=== PATIENT | female | born 2000 | race Caucasian/White ===

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

== ENCOUNTER 2018-03-11 23:37 | Emergency (ER) | payer OTHER ==
[2018-03-12] MEDS ORDERED: Ibuprofen 800 MG TAB ONE (00:09)
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
== END 2018-03-12 00:23 | disposition home or self-care (01) ==
LOC: SCSER 23:37
DX: S60.221A Contusion of right hand, initial encounter (principal); F31.9 Bipolar disorder, unspecified; Z79.899 Other long term (current) drug therapy; W51.XXXA Accidental striking against or bumped into by another person, initial encounter

== ENCOUNTER 2018-10-15 11:27 | Observation (INO) | payer OTHER ==
[2018-10-15] MEDS ORDERED: Ondansetron PF 4 MG/2 ML Vial ONE (12:04)
[2018-10-15 12:06] LABS: #Monocytes 1.1 thou/uL (0.11-0.59); #Neutrophils 6.9 thou/uL (1.40-6.50); %Basophils 0.5 % (0.0-1.0); %Neutrophils 76.5 % (31.0-61.0); Hemoglobin 16.4 g/dL (12.0-16.0); Mean Corpuscular HGB CONC 32.1 g/dL (32.0-36.0); Mean Corpuscular Hemoglobin 27.3 pg (25.0-35.0); Mean Corpuscular Volume 84.9 fL (78.0-98.0); Mean Platelet Volume 7.2 fL (7.4-10.4); Platelet Count 327 thou/uL (130-400); RBC Distribution Width 13.3 % (11.5-14.5); Red Blood Cell (RBC) Count 6.02 mill/uL (4.00-5.20); White Blood Cell (WBC) Count 9.1 thou/uL (4.8-10.8)
[2018-10-15 12:23] LABS: BHCG - Serum Negative (NEGATIVE); Pregs Control Background? CLEAR/WHITE (CLR/WHITE); Pregs Control Bar Appear? YES (CONTROL BAR)
[2018-10-15 12:32] LABS: ALT (SGPT) 23 U/L (8-55); AST (SGOT) 18 U/L (5-34); Albumin 5.7 g/dL (3.5-5.0); Alkaline Phosphatase 114 U/L (40-150); Anion Gap 19 mmol/L (10-20); BUN (Urea Nitrogen) 34 mg/dL (7.0-18.7); Bilirubin, Total 0.3 mg/dL (0.2-1.2); Calc. Creatinine Clearance 0 mL/min (70-130); Calcium 10.9 mg/dL (7.8-10.44); Carbon Dioxide 12 mmol/L (22-29); Chloride 115 mmol/L (98-107); Estimated GFR-MDRD 39; Globulin 4.5 g/dL (2.4-3.5); Glucose 119 mg/dL (70-105); Lipase 4 U/L (8-78); Potassium 3.5 mmol/L (3.5-5.1); Protein, Total 10.2 g/dL (6.0-8.3); Sodium 142 mmol/L (136-145)
[2018-10-15 15:31] VITALS: BMI 21.4
[2018-10-15] MEDS ORDERED: Ondansetron ODT 4 MG TAB SL PRN (15:51)
[2018-10-15] MEDS ORDERED: Ondansetron PF 4 MG/2 ML Vial IVP PRN (15:51)
[2018-10-15] MEDS: Lactated Ringer's 1,000 ML IV SCH ×2 (16:00→22:00)
[2018-10-15] MEDS ORDERED: Acetaminophen 650 MG Suppository PR PRN (18:08)
[2018-10-15] MEDS ORDERED: Acetaminophen 325 MG TAB PO PRN (18:08)
[2018-10-15 18:25] LABS: Band 4 % (5-11); Hemoglobin 13.1 g/dL (12.0-16.0); Lymphocytes 34 % (28-48); MDiff Complete? YES; Mean Corpuscular HGB CONC 33.9 g/dL (32.0-36.0); Mean Corpuscular Hemoglobin 28.5 pg (25.0-35.0); Mean Platelet Volume 7.8 fL (7.4-10.4); Monocytes 5 % (0-4); Neutrophil 57 % (31-61); Platelet Count 256 thou/uL (130-400); Platelet Morphology Comment Appears Adequate; Red Blood Cell (RBC) Count 4.62 mill/uL (4.00-5.20); White Blood Cell (WBC) Count 6.4 thou/uL (4.8-10.8)
[2018-10-15 18:33] LABS: Anion Gap 12 mmol/L (10-20); BUN (Urea Nitrogen) 27 mg/dL (7.0-18.7); CK (CPK) 54 U/L (29-168); Calc. Creatinine Clearance 93 mL/min (70-130); Carbon Dioxide 16 mmol/L (22-29); Chloride 116 mmol/L (98-107); Estimated GFR-MDRD 86; Glucose 90 mg/dL (70-105); Magnesium 2.1 mg/dL (1.7-2.2); Potassium 3.1 mmol/L (3.5-5.1); Sodium 141 mmol/L (136-145)
--- NOTE | 2018-10-15 19:04 | HP ---
REASON FOR ADMISSION: Persistent nausea, vomiting, and diarrhea since yesterday with subsequent dehydration. HISTORY OF PRESENT ILLNESS: Ms. Lee is a 18-year-old woman, who presents with persistent vomiting since yesterday evening around 8 or 9 p.m. She states it began shortly after drinking big red. She reports vomiting anywhere between 20 and 30 times since yesterday. She reports having persistent diarrhea on an hourly basis and states at one point the stools appeared red-tinged, but denies noting any blood per rectum when wiping. She denies experiencing any associated abdominal pain or fevers. She has not had any recent travels. She has not had issues with her bowels in the past or episodes like this before. Sick, she states she has not been around anyone who has had any GI illness or similar symptoms. She has not been on any recent medications. The patient transferred from [facility] ER, where she was given IV fluids and ondansetron with improved symptoms. REVIEW OF SYSTEMS: As stated previously, she denies any fevers, chills, or sweats. She has not had any headaches or dizziness. No chest pain, palpitations, or shortness of breath. Again, denies any abdominal pain or cramping. She has not had any urinary complaints such as dysuria or hematuria. All other review of systems apart from those mentioned in the HPI are negative. PAST MEDICAL HISTORY: Bipolar disorder. PAST SURGICAL HISTORY: Previous tonsillectomy and adenoidectomy. SOCIAL HISTORY: The patient denies any tobacco use, alcohol use, or illicit drug use. FAMILY HISTORY: No family history of any bowel disease. She has a maternal history of bipolar illness. ALLERGIES: PENICILLIN. CURRENT MEDICATIONS: None. PHYSICAL EXAMINATION: GENERAL: The patient appears well developed, well nourished, and is in no acute distress. She does have a flat affect. VITAL SIGNS: Temperature 97.5, pulse 103, respirations 20, O2 saturation 100% on room air, and blood pressure 134/73. HEENT: Normocephalic and atraumatic. Pupils are equal, round, and reactive to light sclerae icterus. Oropharynx is clear. NECK: Supple without lymphadenopathy. LUNGS: Clear to auscultation bilaterally without wheezes, rales, or rhonchi. CARDIAC: Regular rate and rhythm without audible murmurs, rubs, or gallops. ABDOMEN: Soft, nontender, and nondistended. Normoactive bowel sounds present. No guarding or rigidity. No renal angle tenderness. EXTREMITIES: No calf pain or swelling. No edema. NEUROLOGIC: Alert and oriented x3. SKIN: Without rash or jaundice. LABORATORY DATA: White blood count 9.1, hemoglobin 16.4, hematocrit 51.1, MCV 84.9, and platelet count 327. Sodium 142, potassium 3.5, chloride 115, carbon dioxide 12, anion gap 19, BUN 34, creatinine 1.69, GFR 39, and glucose 119. Lactic acid 1.1 , calcium 10.9, total bilirubin 0.3, AST 18, ALT 23, alkaline phosphatase 114, total protein 10.2, albumin 5.7, globulin 4.5, and lipase 4. Serum test negative. IMPRESSION AND PLAN: Ms. Lee is being admitted for management of the followin. Viral gastroenteritis. Nausea and vomiting have settled. She has been receiving intravenous fluids and we will continue to hydrate. Her hemoglobin and hematocrit were elevated and possibly due to dehydration. We will recheck now that she has received intravenous fluids. We will initiate a clear liquid diet and advance as tolerated. 2. Dehydration. BUN elevated at 34 and creatinine at 1.69 on initial presentation. We will recheck renal function. Also, we will check her CK level. We will continue intravenous hydration. 3. Deep vein thrombosis prophylaxis. Mechanical sequential compression devices. Hold prophylactic anticoagulation given questionable report of blood-tinged stool. 4. Gastrointestinal prophylaxis. 5. Full code status. Surrogate decision maker is her mother, Joanna Lee. The patient's case was discussed with Dr. Kurtz, who agrees upon care as described above. Job ID: [id number] [facility]
[2018-10-15] MEDS ORDERED: Potassium Chloride 20 MEQ TAB PO SCH ×2 (19:30→21:30)
[2018-10-15] MEDS: Famotidine/PF 20 mg/2ml Vial SLOW IVP SCH (19:59)
[2018-10-16] MEDS ORDERED: Sodium Chloride 0.9% 1,000 ML IV SCH (01:00)
[2018-10-16 06:50] LABS: Bilirubin Negative (Negative); Blood, Urine Negative (Negative); Clarity CLOUDY (Clear); Glucose, Urine (Dipstick) Negative (Negative); Leukocyte Negative (Negative); Nitrite Negative (Negative); Protein, Urine (Dipstick) Trace mg/dL (Neg-Trace); Specific Gravity, Urine 1.026 (1.002-1.036); Urobilinogen 0.2 mg/dL (0.2-1.0)
[2018-10-16 07:05] LABS: Amphetamine Not Detected (NotDetected); Barbiturates Screen Not Detected (NotDetected); Benzodiazepine Screen Not Detected (NotDetected); Cocaine Metabolite Screen Not Detected (NotDetected); Medtox Control Line Valid? VALID (VALID); Medtox Reader # READER 1; Methadone Not Detected (NotDetected); Methamphetamine Not Detected (NotDetected); Opiate Screen Not Detected (NotDetected); Oxycodone Screen Not Detected (NotDetected); Phencyclidine (PCP) Not Detected (NotDetected); THC/Cannabinoid Screen Not Detected (NotDetected); Tricyclic Screen Not Detected (NotDetected)
[2018-10-16 08:12] LABS: Hemoglobin 11.3 g/dL (12.0-16.0); Mean Corpuscular HGB CONC 33.8 g/dL (32.0-36.0); Mean Corpuscular Hemoglobin 29.1 pg (25.0-35.0); Mean Platelet Volume 7.7 fL (7.4-10.4); Platelet Count 222 thou/uL (130-400); RBC Distribution Width 13.2 % (11.5-14.5); Red Blood Cell (RBC) Count 3.88 mill/uL (4.00-5.20); White Blood Cell (WBC) Count 5.5 thou/uL (4.8-10.8)
[2018-10-16 08:26] LABS: Anion Gap 9 mmol/L (10-20); BUN (Urea Nitrogen) 17 mg/dL (7.0-18.7); Calc. Creatinine Clearance 108 mL/min (70-130); Calcium 8.6 mg/dL (7.8-10.44); Carbon Dioxide 18 mmol/L (22-29); Chloride 116 mmol/L (98-107); Estimated GFR-MDRD Greater than 90; Glucose 86 mg/dL (70-105); Potassium 3.4 mmol/L (3.5-5.1); Sodium 140 mmol/L (136-145)
[2018-10-16] MEDS: Famotidine/PF 20 mg/2ml Vial SLOW IVP SCH (08:43)
[2018-10-16] MEDS ORDERED: Potassium Chloride 20 MEQ TAB PO SCH (09:30)
[2018-10-16 09:50] LABS: Band 2 % (5-11); Lymphocytes 32 % (28-48); MDiff Complete? YES; Monocytes 12 % (0-4); Neutrophil 51 % (31-61); Platelet Morphology Comment Appears Adequate; Polychromasia SLIGHT = 2-3 cells (100X) (0-2/hpf); Reactive Lymphocytes 3 % (0-10)
--- NOTE | 2018-10-16 09:52 | PRG ---
DATE OF SERVICE: 10/16/2018 SUBJECTIVE: The patient feels better. She is hungry and wants to eat. She has no abdominal pain. No further vomiting. OBJECTIVE: VITAL SIGNS: Temperature 97.8, pulse 89, respirations 16, O2 saturation 98%, BP 90/53. Highest BP was 131/78 on admission. GENERAL APPEARANCE: The patient is awake, alert, oriented, cooperative, spends most of her time looking at her phone, not speaking much and not making great eye contact. She put her mother on the phone even for speaking to me and tell me that she wanted to talk to me. HEART: Regular rate and rhythm without murmurs, gallops, or rubs. LUNGS: Clear to auscultation bilaterally with good chest wall expansion and air exchange. ABDOMEN: Soft, nontender, and nondistended. Positive bowel sounds. Slightly hyperactive. EXTREMITIES: No edema. LABORATORY DATA: White count 5.5, hemoglobin 11.3, sodium 140, potassium 3.4, chloride 116, CO2 is 18, BUN 17, creatinine 0.72. IMPRESSION AND PLAN: 1. Nausea, vomiting, and diarrhea consistent with gastroenteritis, looks viral given the white blood cell count of 5.5, seems to be resolved. We will advance her diet. 2. Dehydration with prerenal azotemia and acidosis. Her numbers have significantly improved. She is still little hyperchloremic and mildly acidotic. We will continue IV fluids and see how she does taking p.o. today. If she can eat and drink adequately on her own, will be able to discharge her this afternoon. Job ID: [id number]
[2018-10-16 12:49] VITALS: BP 113/68; TEMP 98.7
== END 2018-10-16 13:06 | disposition home or self-care (01) ==
LOC: SCSER 11:27 → T4-B 13:18
PROVIDERS: ADMIT Internal Medicine; ATTEND Internal Medicine
DX: A08.4 Viral intestinal infection, unspecified (principal); E86.0 Dehydration; F31.9 Bipolar disorder, unspecified; Z90.89 Acquired absence of other organs; Z88.0 Allergy status to penicillin
CPT/HCPCS: 36415; 80048; 80053; 80306; 81003; 82550; 83605; 83690; 83735; 84703; 85025; 96361; 96374; 96375; 96376; G0378; J2405; S0028

== ENCOUNTER 2022-03-09 20:09 | Emergency (ER) | payer OTHER ==
[2022-03-09 21:11] LABS: Pregnancy Test - Urine (BHCG) Negative (Negative); Pregu Control Background? CLEAR/WHITE (CLR/WHITE); Pregu Control Bar Appear? YES (CONTROL BAR); Specific Gravity 1.009 (1.002-1.036)
[2022-03-09 21:13] LABS: #Eosinphils 0.1 thou/uL (0.0-0.7); #Lymphocytes 1.9 thou/uL (1.20-3.40); #Monocytes 0.7 thou/uL (0.11-0.59); #Neutrophils 5.1 thou/uL (1.40-6.50); %Basophils 0.2 % (0.0-1.0); %Lymphocytes 24.3 % (21.0-51.0); %Monocytes 8.9 % (0.0-10.0); %Neutrophils 65.5 % (42.0-75.0); Hemoglobin 13.4 g/dL (12.0-16.0); Mean Corpuscular HGB CONC 32.7 g/dL (32.0-36.0); Mean Corpuscular Hemoglobin 28.9 pg (27.0-31.0); Mean Corpuscular Volume 88.5 fL (78.0-98.0); Platelet Count 263 thou/uL (130-400); RBC Distribution Width 12.5 % (11.5-14.5); Red Blood Cell (RBC) Count 4.65 mill/uL (4.20-5.40); White Blood Cell (WBC) Count 7.7 thou/uL (4.8-10.8)
[2022-03-09 21:18] LABS: Amphetamine Not Detected (NotDetected); Barbiturates Screen Not Detected (NotDetected); Benzodiazepine Screen Not Detected (NotDetected); Cocaine Metabolite Screen Not Detected (NotDetected); Methadone Not Detected (NotDetected); Methamphetamine Not Detected (NotDetected); Opiate Screen Not Detected (NotDetected); Oxycodone Screen Not Detected (NotDetected); Phencyclidine (PCP) Not Detected (NotDetected); THC/Cannabinoid Screen Not Detected (NotDetected); Tricyclic Screen Not Detected (NotDetected)
[2022-03-09 21:31] LABS: Acetaminophen Less than 10.0 mcg/mL (10.0-30.0); Alcohol Less than 10 mg/dL (Less than 10); Salicylate Less than 8.0 mg/dL (15.0-30.0)
[2022-03-09 21:32] LABS: ALT (SGPT) 9 U/L (8-55); AST (SGOT) 15 U/L (5-34); Albumin 4.6 g/dL (3.5-5.0); Alkaline Phosphatase 82 U/L (40-110); Anion Gap 13 mmol/L (10-20); BUN (Urea Nitrogen) 7 mg/dL (7.0-18.7); Bilirubin, Total 0.4 mg/dL (0.2-1.2); Calc. Creatinine Clearance 0 mL/min (70-130); Calcium 9.2 mg/dL (7.8-10.44); Carbon Dioxide 24 mmol/L (22-29); Chloride 107 mmol/L (98-107); Estimated GFR 108; Globulin 3.3 g/dL (2.4-3.5); Glucose 85 mg/dL (70-105); Potassium 3.6 mmol/L (3.5-5.1); Protein, Total 7.9 g/dL (6.0-8.3); Sodium 140 mmol/L (136-145)
[2022-03-10] MEDS ORDERED: Acetaminophen 500 MG TAB ONE ×2 (03:17→09:18)
[2022-03-10 05:55] LABS: SARS-CoV-2 NAA Rapid Test Not Detected (NotDetected)
== END 2022-03-10 12:29 | disposition short-term general hospital (02) ==
LOC: ERS 20:09
DX: R45.851 Suicidal ideations (principal); Z20.822 Contact with and (suspected) exposure to COVID-19
CPT/HCPCS: 36415; 80053; 80306; 80307; 81025; 84443; 85025; 99285; U0002

== ENCOUNTER 2022-04-03 12:20 | Emergency (ER) | payer OTHER ==
[2022-04-03 15:13] LABS: #Basophils 0.1 thou/uL (0.0-0.2); #Eosinphils 0.1 thou/uL (0.0-0.7); #Lymphocytes 1.7 thou/uL (1.20-3.40); #Monocytes 0.7 thou/uL (0.11-0.59); #Neutrophils 4.5 thou/uL (1.40-6.50); %Eosinophils 1.9 % (0.0-10.0); %Lymphocytes 24.2 % (21.0-51.0); %Monocytes 9.8 % (0.0-10.0); %Neutrophils 63.1 % (42.0-75.0); Hemoglobin 12.4 g/dL (12.0-16.0); Mean Corpuscular HGB CONC 34.1 g/dL (32.0-36.0); Mean Corpuscular Hemoglobin 30.1 pg (27.0-31.0); Mean Corpuscular Volume 88.3 fL (78.0-98.0); Mean Platelet Volume 6.8 fL (7.4-10.4); Platelet Count 269 thou/uL (130-400); RBC Distribution Width 12.2 % (11.5-14.5); Red Blood Cell (RBC) Count 4.11 mill/uL (4.20-5.40); White Blood Cell (WBC) Count 7.1 thou/uL (4.8-10.8)
[2022-04-03 15:24] LABS: Bacteria/HPF 1+ HPF (None Seen); Bilirubin Negative (Negative); Blood, Urine Negative (Negative); Clarity Turbid (Clear); Glucose, Urine (Dipstick) Normal (Negative); Ketone, Urine Negative (Negative); Leukocyte 250 Leu/uL (Negative); Nitrite Negative (Negative); Protein, Urine (Dipstick) Negative (Neg-Trace); RBC/HPF 0-3 HPF (0-3); Specific Gravity, Urine 1.023 (1.002-1.036); Urobilinogen Normal mg/dL (Less than 2); WBC/HPF 0-3 HPF (0-3); pH, Urine 5.5 (5.0-9.0)
[2022-04-03 15:31] LABS: Amphetamine Not Detected (NotDetected); Barbiturates Screen Not Detected (NotDetected); Benzodiazepine Screen Not Detected (NotDetected); Cocaine Metabolite Screen Not Detected (NotDetected); Methadone Not Detected (NotDetected); Methamphetamine Not Detected (NotDetected); Opiate Screen Not Detected (NotDetected); Oxycodone Screen Not Detected (NotDetected); Phencyclidine (PCP) Not Detected (NotDetected); THC/Cannabinoid Screen Not Detected (NotDetected); Tricyclic Screen Not Detected (NotDetected)
[2022-04-03 15:44] LABS: ALT (SGPT) 20 U/L (8-55); AST (SGOT) 15 U/L (5-34); Albumin 4.4 g/dL (3.5-5.0); Alkaline Phosphatase 84 U/L (40-110); Anion Gap 14 mmol/L (10-20); BUN (Urea Nitrogen) 11 mg/dL (7.0-18.7); Bilirubin, Total 0.3 mg/dL (0.2-1.2); Calc. Creatinine Clearance 0 mL/min (70-130); Calcium 9.2 mg/dL (7.8-10.44); Carbon Dioxide 21 mmol/L (22-29); Chloride 108 mmol/L (98-107); Estimated GFR 109; Globulin 2.9 g/dL (2.4-3.5); Glucose 99 mg/dL (70-105); Potassium 4.1 mmol/L (3.5-5.1); Protein, Total 7.3 g/dL (6.0-8.3); Sodium 139 mmol/L (136-145)
== END 2022-04-03 16:51 | disposition home or self-care (01) ==
LOC: ERS 12:20
DX: M54.50 Low back pain, unspecified (principal); R51.9 Headache, unspecified
CPT/HCPCS: 36415; 80053; 80306; 81003; 81015; 85025; 99284

== ENCOUNTER 2022-09-28 08:53 | Emergency (ER) | payer MEDICARE, OTHER ==
[2022-09-28] MEDS ORDERED: Ondansetron PF 4 MG/2 ML Vial ONE (09:30)
[2022-09-28 09:54] LABS: #Eosinphils 0.2 thou/uL (0.0-0.7); #Lymphocytes 1.6 thou/uL (1.20-3.40); #Monocytes 1.4 thou/uL (0.11-0.59); %Basophils 0.2 % (0.0-1.0); %Lymphocytes 15.8 % (21.0-51.0); %Monocytes 13.6 % (0.0-10.0); %Neutrophils 68.4 % (42.0-75.0); Hemoglobin 12.6 g/dL (12.0-16.0); Mean Corpuscular HGB CONC 31.9 g/dL (32.0-36.0); Mean Corpuscular Hemoglobin 28.3 pg (27.0-31.0); Mean Corpuscular Volume 88.7 fl (78.0-98.0); Mean Platelet Volume 7.6 fL (7.4-10.4); Platelet Count 254 10x3/uL (130-400); RBC Distribution Width 12.3 % (11.5-14.5); Red Blood Cell (RBC) Count 4.44 mill/uL (4.20-5.40); White Blood Cell (WBC) Count 10.2 10x3/uL (4.8-10.8)
[2022-09-28 10:02] LABS: Bacteria/HPF None Seen HPF (None Seen); Bilirubin Negative (Negative); Blood, Urine Negative (Negative); Clarity Clear (Clear); Glucose, Urine (Dipstick) Normal (Negative); Ketone, Urine Negative (Negative); Leukocyte 25 Leu/uL (Negative); Nitrite Negative (Negative); Protein, Urine (Dipstick) Negative (Neg-Trace); RBC/HPF 0-3 HPF (0-3); Specific Gravity, Urine 1.008 (1.002-1.036); Squamous Epithelial 0-3 HPF (0-3); Urobilinogen Normal mg/dL (Less than 2); WBC/HPF 0-3 HPF (0-3); pH, Urine 5.5 (5.0-9.0)
[2022-09-28 10:05] LABS: Pregnancy Test - Urine (BHCG) Negative (Negative); Pregu Control Background? CLEAR/WHITE (CLR/WHITE); Pregu Control Bar Appear? YES (CONTROL BAR); Specific Gravity 1.008 (1.002-1.036)
[2022-09-28] MEDS ORDERED: Dicyclomine 20 MG/2 ML VIAL ONE (10:07)
[2022-09-28 10:12] LABS: ALT (SGPT) 23 U/L (8-55); AST (SGOT) 17 U/L (5-34); Alkaline Phosphatase 84 U/L (40-110); Anion Gap 14 mmol/L (10-20); BUN (Urea Nitrogen) 9 mg/dL (7.0-18.7); Bilirubin, Total 0.4 mg/dL (0.2-1.2); Calc. Creatinine Clearance 0 mL/min (70-130); Calcium 9.4 mg/dL (7.8-10.44); Carbon Dioxide 23 mmol/L (22-29); Chloride 103 mmol/L (98-107); Estimated GFR 115; Globulin 3.1 g/dL (2.4-3.5); Glucose 108 mg/dL (70-105); Lipase 6 U/L (8-78); Potassium 3.5 mmol/L (3.5-5.1); Protein, Total 7.1 g/dL (6.0-8.3); Sodium 136 mmol/L (136-145)
== END 2022-09-28 11:07 | disposition home or self-care (01) ==
LOC: ERS 08:53
DX: R11.2 Nausea with vomiting, unspecified (principal); R10.84 Generalized abdominal pain
CPT/HCPCS: 36415; 80053; 81003; 81015; 81025; 83690; 85025; 94760; 96372; J2405